=== PATIENT | female | born 1995 | race Caucasian/White ===

== ENCOUNTER 2023-04-03 10:01 | Emergency (ER) | payer OTHER, MEDICAID, SELFPAY ==
[2023-04-03 10:06] VITALS: BP 116/73; PULSE 78; RESP 15; TEMP 36.6; O2SAT 100; BMI 35.2
--- NOTE | 2023-04-03 10:31 | PC.NURSE ---
labs being drawn
[2023-04-03 10:49] LABS: Add Manual Diff / Slide Review NO; Basophils Absolute Auto 0 /uL (0-100); Basophils Percent Auto 0.4 % (0-2); Eosinophils Absolute Auto 0 /uL (0-450); Eosinophils Percent Auto 0.5 % (2-4); Hematocrit 37.4 % (36-46); Hemoglobin 12.7 g/dL (12.0-16.0); Lymphocytes Absolute Auto 1700 /uL (1100-4500); Lymphocytes Percent Auto 23.4 % (25-40); Mean Corpuscular HGB Conc 33.9 % (30-36); Mean Corpuscular Hemoglobin 30.1 PG (26-34); Mean Corpuscular Volume 88.8 fL (80-100); Monocytes Absolute Auto 400 /uL (0-900); Monocytes Percent Auto 5.3 % (3-14); Neutrophils Absolute Auto 5000 /uL (1500-7000); Neutrophils Percent Auto 70.4 % (50-75); Platelet Count 192 X10^3/uL (150-400); Red Blood Cell Count 4.21 X10^6/uL (4.0-5.2); Red Cell Distribution Width 12.7 % (11.6-14.8); White Blood Cell Count 7.1 X10^3/uL (4.5-11.0)
--- NOTE | 2023-04-03 10:49 | ED_ITS ---
HPI - Psych General Chief Complaint: Psychiatric Symptoms Stated Complaint: psychiatric symptoms Time Seen by Provider: 04/03/23 10:38 Source: patient Mode of arrival: Ambulatory History of Present Illness HPI Narrative: 27-year-old female. History of bipolar disorder. Is on multiple medications for this. Has recently moved to the local area. She has seen a mental health provider in the past but that was at her prior place of living in [place]. Her medications are still prescribed by her provider in [place]. She is taking all of her medications as directed. She states she does vape and use marijuana. She only occasionally drinks. Has not used any alcohol in the past 24 hours. Denies any other illicit drugs. She states that for the past several weeks she is had progressively worsening issues with depression and suicidal ideation. States that yesterday she did cut her left wrist. She was unsure as to what she was trying to accomplish with this although she stated that she did hope that she would because of the cut. She states she does not actually want to . She is . She has a 5-year-old nonverbal son at home but she states that she can not live the way that she is currently feeling in his asking for help. She has been admitted to the hospital in the past. Most recently in 2017. He has tried to commit suicide in the past. She states she does not feel safe at home. She denies any other medical problems. She thinks that she potentially was manic prior to her episode of depression this started several weeks ago. Related Data Home Medications Medication Instructions Recorded Confirmed atomoxetine 10 mg capsule mg PO DAILY 04/03/23 (Strattera) buspirone 5 mg tablet mg PO BID 04/03/23 cariprazine 4.5 mg capsule 4.5 mg PO DAILY 04/03/23 04/03/23 (Vraylar) prazosin 1 mg capsule mg PO BEDTIME 04/03/23 trihexyphenidyl 2 mg tablet mg PO BID 04/03/23 Allergies Allergy/AdvReac Type Severity Reaction Status Date / Time No Known Drug Allergies Allergy Verified 04/03/23 10:05 Review of Systems Review of Systems ROS Unobtainable: All systems reviewed & are unremarkable except as noted in HPI and below Patient History Medical History Bipolar disorder Social History Smoking Status: Current every day smoker Smoking Status: Current every day smoker tobacco type: vaping alcohol intake frequency: holidays/special occasions only Substance Use Type: marijuana Exam Initial Vital Signs Initial Vital Signs: Vital Signs Temperature 97.8 F 04/03/23 10:06 Pulse Rate 78 04/03/23 10:06 Respiratory Rate 15 04/03/23 10:06 Blood Pressure 116/73 04/03/23 10:06 Pulse Oximetry 100 04/03/23 10:06 Oxygen Delivery Method Room Air 04/03/23 10:06 HENMT Head: normal to inspection Resp Effort & Inspection: normal respiratory effort Cardio Rate: regular rate Skin Other: Superficial laceration to left wrist Neuro General: patient alert, patient awake, patient oriented x3 and moves all extremities Extrem Other: She is tearful in the room however is calm and cooperative. Denies suicidal ideation but states she ?does not want to live? Course Orders Ordered: ED Orders 04/03/23 10:12 Consult to HEALTH SERVICE WORKER - Log Chain Worker Stat 04/03/23 10:18 Urine Culture Stat Urine Drug Screen, Rapid Stat Urine Microscopic Stat 04/03/23 10:38 Acetaminophen Stat Complete Blood Count AUTO DIFF Stat Comprehensive Metabolic Panel Stat Ethanol (ETOH) Stat Free T4, Direct Thyroxine Stat Salicylate Stat Thyroid Stimulating Hormone Stat 04/03/23 12:07 COVID19 -Nasal RAPID Stat Vital Signs Vital signs: Vital Signs - 8 hr 04/03/23 10:06 04/03/23 13:54 Temperature 97.8 F Pulse Rate 78 68 Respiratory Rate 15 14 Blood Pressure 116/73 112/63 Pulse Oximetry 100 99 Oxygen Delivery Method Room Air Room Air MDM - Psych Lab Data 04/03/23 10:38 04/03/23 10:38 Labs: Lab Results 04/03/23 04/03/23 04/03/23 Range/Units 10:18 10:18 10:38 WBC 7.1 (4.5-11.0) X10^3/uL RBC 4.21 (4.0-5.2) X10^6/uL Hgb 12.7 (12.0-16.0) g/dL Hct 37.4 (36-46) % MCV 88.8 (80-100) fL MCH 30.1 (26-34) PG MCHC 33.9 (30-36) % RDW 12.7 (11.6-14.8) % Plt Count 192 (150-400) X10^3/uL Neut % (Auto) 70.4 (50-75) % Lymph % (Auto) 23.4 L (25-40) % Mobile % (Auto) 5.3 (3-14) % Eos % (Auto) 0.5 L (2-4) % Baso % (Auto) 0.4 (0-2) % Neut # (Auto) 5000 (4694-1601) /uL Lymph # (Auto) 1700 (7264-6165) /uL Mobile # (Auto) 400 (0-900) /uL Eos # (Auto) 0 (0-450) /uL Baso # (Auto) 0 (0-100) /uL Sodium (137-145) mmol/L Potassium (3.4-5.1) mmol/L Chloride (98-107) mmol/L Carbon Dioxide (22-32) mmol/L BUN (7-17) mg/dL Creatinine (0.52-1.04) mg/dL Estimated GFR (>60) mL/min BUN/Creatinine Ratio (6-22) Glucose (70-100) mg/dL Calcium (8.4-10.2) mg/dL Total Bilirubin (0.2-1.3) mg/dL AST (14-36) IU/L ALT (<35) IU/L Alkaline Phosphatase (38-126) U/L Total Protein (6.3-8.2) g/dL Albumin (3.5-5.0) g/dL Globulin (1.7-4.1) g/dL Albumin/Globulin Ratio (1.0-2.8) TSH (0.47-4.68) uIU/mL Free T4 (0.78-2.19) ng/dL Urine RBC None seen (0-5/HPF) Urine WBC 1-5/hpf (0-5/HPF) Ur Squamous Epith Cells 5-10 /hpf H (0-5/HPF) Urine Bacteria Many (>30) H (None) Ur Culture Indicated? Specimen cultured Salicylates (<20) mg/dL U Opiates 300ng/mL cut Negative (Negative) Ur Oxycodone Screen Negative (Negative) Urine Methadone Screen Negative (Negative) Acetaminophen (10-30) ug/mL Ur Barbiturates Screen Negative (Negative) U Tricyclic Antidepress Negative (Negative) Ur Phencyclidine Scrn Negative (Negative) Ur Amphetamines Screen Negative (Negative) U Methamphetamines Scrn Negative (Negative) Ur MDMA Scrn (Ecstasy) Negative (Negative) U Benzodiazepines Scrn Negative (Negative) Urine Cocaine Screen Negative (Negative) U Marijuana (THC) Screen Positive H (Negative) Ethyl Alcohol ( - 10) mg/dL SARS-CoV-2 (PCR) (Negative) 04/03/23 04/03/23 04/03/23 Range/Units 10:38 10:38 12:07 WBC (4.5-11.0) X10^3/uL RBC (4.0-5.2) X10^6/uL Hgb (12.0-16.0) g/dL Hct (36-46) % MCV (80-100) fL MCH (26-34) PG MCHC (30-36) % RDW (11.6-14.8) % Plt Count (150-400) X10^3/uL Neut % (Auto) (50-75) % Lymph % (Auto) (25-40) % Mobile % (Auto) (3-14) % Eos % (Auto) (2-4) % Baso % (Auto) (0-2) % Neut # (Auto) (7931-0735) /uL Lymph # (Auto) (5297-8541) /uL Mobile # (Auto) (0-900) /uL Eos # (Auto) (0-450) /uL Baso # (Auto) (0-100) /uL Sodium 139 (137-145) mmol/L Potassium 4.7 (3.4-5.1) mmol/L Chloride 106 (98-107) mmol/L Carbon Dioxide 22 (22-32) mmol/L BUN 18 H (7-17) mg/dL Creatinine 0.89 (0.52-1.04) mg/dL Estimated GFR > 60 (>60) mL/min BUN/Creatinine Ratio 20.2 (6-22) Glucose 109 H (70-100) mg/dL Calcium 8.9 (8.4-10.2) mg/dL Total Bilirubin 0.3 (0.2-1.3) mg/dL AST 19 (14-36) IU/L ALT 20 (<35) IU/L Alkaline Phosphatase 49 (38-126) U/L Total Protein 7.2 (6.3-8.2) g/dL Albumin 4.0 (3.5-5.0) g/dL Globulin 3.2 (1.7-4.1) g/dL Albumin/Globulin Ratio 1.3 (1.0-2.8) TSH 0.424 L (0.47-4.68) uIU/mL Free T4 1.09 (0.78-2.19) ng/dL Urine RBC (0-5/HPF) Urine WBC (0-5/HPF) Ur Squamous Epith Cells (0-5/HPF) Urine Bacteria (None) Ur Culture Indicated? Salicylates < 1.0 (<20) mg/dL U Opiates 300ng/mL cut (Negative) Ur Oxycodone Screen (Negative) Urine Methadone Screen (Negative) Acetaminophen < 10 (10-30) ug/mL Ur Barbiturates Screen (Negative) U Tricyclic Antidepress (Negative) Ur Phencyclidine Scrn (Negative) Ur Amphetamines Screen (Negative) U Methamphetamines Scrn (Negative) Ur MDMA Scrn (Ecstasy) (Negative) U Benzodiazepines Scrn (Negative) Urine Cocaine Screen (Negative) U Marijuana (THC) Screen (Negative) Ethyl Alcohol < 10 ( - 10) mg/dL SARS-CoV-2 (PCR) Negative (Negative) Point of Care Testing Test Results Negative Urine Dip Bedside Urine Glucose Negative Bedside Urine Bilirubin - Negative Bedside Urine Ketone - Negative Urine Specific [place] 1.015 Bedside Urine Occult Blood - Negative Bedside Urine pH 6.0 Bedside Urine Protein - Negative Bedside Urine Urobilinogen - Negative Bedside Urine Nitrite - Negative Bedside Urine Leukocytes ++ 125 Esterase MDM Narrative Medical decision making narrative: Patient is here voluntarily. Does have a history of bipolar. Potentially was manic and then has been depressed for the past couple days. Has a superficial laceration to her left wrist that needs no specific intervention here in the ER. Patient has been seen by social work. She is medically cleared. Patient has been accepted at [facility]. She is stable for transport. Discharge Plan Departure Patient Disposition: Xfer Psychiatric Hosp Clinical Impression: Depression, Suicidal thoughts, Bipolar disorder, Abrasion of skin Prescriptions: No Action buspirone 5 mg Tablet PO BID Rx Instructions: doesn't know her dose trihexyphenidyl 2 mg Tablet PO BID Patient Comments: doesn't know her dose Vraylar 4.5 mg Capsule 4.5 mg PO DAILY prazosin 1 mg Capsule PO BEDTIME Rx Instructions: doesn't know her dose atomoxetine [Strattera] 10 mg Capsule PO DAILY Rx Instructions: doesn't know her dose
[2023-04-03 10:52] LABS: UR Morphine/Opiate cutoff 300 Negative (Negative); Ur Creatinine Normal (Normal); Ur Specific Gravity Normal (Normal); Urine Amphetamines Negative (Negative); Urine Barbiturates Negative (Negative); Urine Benzodiazepines Negative (Negative); Urine Cocaine Negative (Negative); Urine MDMA Negative (Negative); Urine Methadone Negative (Negative); Urine Methamphetamines Negative (Negative); Urine Oxycodone Negative (Negative); Urine Phencyclidine Negative (Negative); Urine Tetrahydrocannabinol Positive (Negative); Urine Tricyclic Antidepressant Negative (Negative); Urine pH Normal (Normal)
[2023-04-03 10:56] LABS: Bacteria Urine Many (>30); Culture Indicated Urine Specimen Cultured; RBC Urine None Seen (0-5/HPF); Squamous Epithelial Cell Urine 5-10 /HPF (0-5/HPF); WBC Urine 1-5/HPF (0-5/HPF)
[2023-04-03 10:58] LABS: Acetaminophen < 10 ug/mL (10-30); Alanine Aminotransferase 20 IU/L (<35); Albumin Globulin Ratio 1.3 (1.0-2.8); Alkaline Phosphatase 49 U/L (38-126); Aspartate Aminotransferase 19 IU/L (14-36); BUN Creatinine Ratio 20.2 (6-22); Bilirubin Total 0.3 mg/dL (0.2-1.3); Blood Urea Nitrogen 18 mg/dL (7-17); Calcium 8.9 mg/dL (8.4-10.2); Carbon Dioxide 22 mmol/L (22-32); Chloride 106 mmol/L (98-107); Estimated Glomerular Filt Rate > 60 mL/min (>60); Globulin 3.2 g/dL (1.7-4.1); Glucose 109 mg/dL (70-100); HEMOLYSIS < 15 (0-50); Potassium 4.7 mmol/L (3.4-5.1); Sodium 139 mmol/L (137-145); Total Protein 7.2 g/dL (6.3-8.2)
[2023-04-03 11:08] LABS: Ethanol (ETOH) < 10 mg/dL; Salicylate < 1.0 mg/dL (<20)
[2023-04-03 11:22] LABS: Free T4, Direct Thyroxine 1.09 ng/dL (0.78-2.19)
[2023-04-03 11:36] LABS: Thyroid Stimulating Hormone 0.424 uIU/mL (0.47-4.68)
--- NOTE | 2023-04-03 11:37 | CM.DANOTE ---
ED Psychiatric Symptoms Assessment ED Psychiatric Symptoms Assessment Start: 04/03/23 10:12 Freq: Status: Active Protocol: Document 04/03/23 10:15 KB (Rec: 04/03/23 10:30 KB [id number]) Psychiatric Symptoms Assessment Symptoms/Complaint Suicidal Ideation Duration Intermittent History Of Same Yes Associated Psychiatric Symptoms Suicidal Ideation Details of Plan Pt here because she states I want to Pt has cycles of this with her bipolar disorder,she is concerned that her meds aren't working right . Pt states I don't know why because everything is fine.Pt denies specific plan states I guess I would kind of just take all my medicine,I don't want it to hurt,I want it to be over. Pt attempted to cut her wrists in 2019 which is the last time that she felt like this. Pt recently moved here 3 months ago,doesn't have a doctor at this time. Pt states I'm afraid if I'm left like this any longer I will follow papa. Pt is willing and voluntary to go to inpatient treatment. P states I'm willing to do whatever will help at this point. Pts brought her here today. [ End ] Level of Observation Intermittent Precautions Safety precautions initiated Room placement ligature mitigated room Safety Interventions Patient belongings removed from room,Explanation of process given to patient,Pt placed in hospital safety attire Level of Consciousness Alert,Appropriate,Awake Ability to Follow Directions Excellent Patient Cognition Impaired No Affect Description Calm,Tearful Patient Appearance Well Groomed Hallucination Type None Depressive Symptoms Crying Spells Suicidal Ideation Frequent Suicide Plan Vague Note written by CHRISTI ADAMS, submitted by JUANITA Rangel
--- NOTE | 2023-04-03 12:19 | PC.NURSE ---
The pt and I attempted to set up [facility] health care insurance. The [place] [employer] finder karen and website are down for maintance.
--- NOTE | 2023-04-03 12:26 | PC.NURSE ---
attempting to get insurance for the patient online.
[2023-04-03 12:28] LABS: COVID19 -Nasal RAPID Negative (Negative)
[2023-04-03 13:54] VITALS: BP 112/63; PULSE 68; RESP 14; O2SAT 99
--- NOTE | 2023-04-03 14:11 | CM.SWNOTE ---
DISTRICT SUPERINTENDENT Note This DISTRICT SUPERINTENDENT requested to assist in dispo coordination for this 27 yo F requesting voluntary psychiatric placement Dr Juarez and RN team agree patient is appropriate for inpatient stabilization, patient arrives with active SI, cutting and hx of SI with attempt Placed calls to [facility], [facility] and [facility] inpatient psych and faxed clinical packet; all had beds however [facility] and [facility] would not accept patient without RANDAL pending. Patient recently moved to the area with spouse and neither have insurance Admission counselors are not available over the weekend and RN and patient could not go onto the [employer] finder as the system was down today Thankfully, [facility] came back with an acceptance knowing that patient had no insurance but could be signed up once admitted to their psychiatric unit Voluntary consent form was faxed from [facility], reviewed with patient by this DISTRICT SUPERINTENDENT, signed by patient and faxed back. Patient was aware and agreeable to plan and asked to update her spouse by phone of the plan- relayed this to RN Manuela BLS was arranged by ER team for 1400 p/u with the following information: Accepting provider Dr Choco So. Nurse 2 Nurse P [phone]. Contact today was Yulisa Fitzpatrick [phone] plan: Discharge from the ER via secured BLS to [facility] inpatient psychiatric unit, 3-5 day stay for stabilization JUANITA Rangel
== END 2023-04-03 14:12 ==
PROVIDERS: Emergency Provider Emergency Medicine
DX: F32.A Depression, unspecified (principal); R45.851 Suicidal ideations; F31.9 Bipolar disorder, unspecified; S60.812A Abrasion of left wrist, initial encounter; Z20.822 Contact with and (suspected) exposure to COVID-19
CPT/HCPCS: 36415; 80053; 80305; 80320; 80329; 81003; 81015; 81025; 84439; 84443; 85025; 87086; 87635; 99284; C9803; G0480

== ENCOUNTER 2023-04-17 10:37 | Emergency (ER) | payer OTHER, MEDICAID, SELFPAY ==
[2023-04-17 10:45] VITALS: BP 121/55; PULSE 80; RESP 18; TEMP 36.6; O2SAT 100; BMI 32.5
--- NOTE | 2023-04-17 10:58 | ED.RECABL ---
HPI - Recheck/Abnormal Lab/Rx General Chief Complaint: Recheck/Abnormal Lab/Rx Stated Complaint: almost out of meds Time Seen by Provider: 04/17/23 10:54 Source: patient Mode of arrival: Ambulatory History of Present Illness HPI narrative: 27-year-old female presents for medication refill. Patient was recently discharged after psychiatric stay, she was discharged on ziprasidone and lithium. She states that her mood is well controlled, but her next doctor's appointment is not for another 20 days and she only has a few days left of her medication. She already has an appointment set up with her doctor's office for a lithium check. She states her lithium was checked just prior to discharge from the psychiatric hospital and it was reported to be normal. Related Data Home Medications Medication Instructions Recorded Confirmed atomoxetine 10 mg capsule mg PO DAILY 04/03/23 (Strattera) buspirone 5 mg tablet mg PO BID 04/03/23 cariprazine 4.5 mg capsule 4.5 mg PO DAILY 04/03/23 04/03/23 (Vraylar) prazosin 1 mg capsule mg PO BEDTIME 04/03/23 trihexyphenidyl 2 mg tablet mg PO BID 04/03/23 Previous Rx's Medication Instructions Recorded lithium carbonate 450 mg 450 mg PO BID #60 tabs 04/17/23 tablet,extended release ziprasidone HCl 40 mg capsule 40 mg PO BID #60 caps 04/17/23 Allergies Allergy/AdvReac Type Severity Reaction Status Date / Time No Known Drug Allergies Allergy Verified 04/03/23 10:05 Review of Systems Review of Systems Narrative: CONSTITUTIONAL- Denies: fever, chills, fatigue HEENT- Denies: sore throat, nosebleed, vision changes RESPIRATORY- Denies: shortness of breath, cough, wheezing CARDIAC- Denies: chest pain, edema, orthopnea GI- Denies: abdominal pain, nausea, vomiting, constipation, diarrhea - Denies: frequency, dysuria, hematuria, flank pain MSK- Denies: extremity pain, extremity swelling, joint pain, joint swelling SKIN- Denies: rash, itching, burn, swelling NEUROLOGICAL- Denies: headache, numbness, weakness, dizziness PSYCHIATRIC- Denies: anxiety, depression, suicidal ideation, homicidal ideation Patient History Medical History Bipolar disorder Social History Smoking Status: Current every day smoker Smoking Status: Current every day smoker tobacco type: vaping alcohol intake frequency: holidays/special occasions only Substance Use Type: marijuana Exam Initial Vital Signs Initial Vital Signs: Vital Signs Temperature 97.9 F 04/17/23 10:45 Pulse Rate 80 04/17/23 10:45 Respiratory Rate 18 04/17/23 10:45 Blood Pressure 121/55 L 04/17/23 10:45 Pulse Oximetry 100 04/17/23 10:45 Oxygen Delivery Method Room Air 04/17/23 10:45 Const: Awake, alert, no acute distress, nontoxic appearing Eyes: PERRL, EOMI, conjunctiva normal ENT: Atraumatic, dentition normal, mucous membranes moist Cardiac: regular rate, regular rhythm RESP: unlabored, clear bilaterally, no wheezing GI: Atraumatic, soft, nontender, nondistended, no rebound, no guarding MSK: Atraumatic, full range of motion, pulses equal Skin: Warm, Dry, intact, no rashes Neuro: AO x3, CN II-XII grossly intact, moves all extremities Psych: affect normal, mood normal, not suicidal, not homicidal Course Course Course Narrative: Well-appearing patient presenting for medication refill. Her mood is well controlled on her current regimen and she denies complaints. She already has appropriately scheduled follow up to check her lithium levels. Thirty day refills sent to pharmacy. Vital Signs Vital signs: Vital Signs - 8 hr 04/17/23 10:45 Temperature 97.9 F Pulse Rate 80 Respiratory Rate 18 Blood Pressure 121/55 L Pulse Oximetry 100 Oxygen Delivery Method Room Air Discharge Plan Departure Patient Disposition: Home Clinical Impression: Encounter for medication refill Instructions: Psychotherapy Prescriptions: New ziprasidone HCl 40 mg capsule 40 mg PO BID Qty: 60 0RF Rx Instructions: give with food (meal/snack) lithium carbonate 450 mg tablet extended release 450 mg PO BID Qty: 60 0RF No Action buspirone 5 mg Tablet PO BID Rx Instructions: doesn't know her dose trihexyphenidyl 2 mg Tablet PO BID Patient Comments: doesn't know her dose Vraylar 4.5 mg Capsule 4.5 mg PO DAILY prazosin 1 mg Capsule PO BEDTIME Rx Instructions: doesn't know her dose atomoxetine [Strattera] 10 mg Capsule PO DAILY Rx Instructions: doesn't know her dose Referrals: Miscellaneous,Doctor, MD [Primary Care Provider] - Stand Alone Forms: Patient Portal/API
== END 2023-04-17 11:04 | disposition home or self-care (01) ==
PROVIDERS: Emergency Provider Emergency Medicine
DX: Z76.0 Encounter for issue of repeat prescription (principal)
CPT/HCPCS: 99281; 99282

== ENCOUNTER 2023-07-17 13:17 | Emergency (ER) | payer OTHER, MEDICAID, SELFPAY ==
[2023-07-17 13:20] VITALS: BP 141/71; PULSE 78; RESP 18; TEMP 36.9; O2SAT 100; BMI 35.2
--- NOTE | 2023-07-17 13:26 | ED_ITS ---
HPI - Headache General Chief Complaint: Headache Stated Complaint: per pt chronic sinusitis Time Seen by Provider: 07/17/23 13:26 Mode of arrival: Ambulatory History of Present Illness HPI Narrative: This is a 28-year-old female presents emergency department due to acute on chronic sinusitis. States she has had sinusitis chronically for the last 10 years where she had reported sinus surgery in [place] but states that she has been told that she needs mastoid surgery as well by her previous ENT. She was moved to the area and is working to establish with an ENT that will work with her insurance. Reports he is acute symptoms happening over the last 10 days with sinus pain and pressure, cough, intermittent fevers. Related Data Home Medications Medication Instructions Recorded Confirmed atomoxetine 10 mg capsule mg PO DAILY 04/03/23 (Strattera) buspirone 5 mg tablet mg PO BID 04/03/23 cariprazine 4.5 mg capsule 4.5 mg PO DAILY 04/03/23 04/03/23 (Vraylar) prazosin 1 mg capsule mg PO BEDTIME 04/03/23 trihexyphenidyl 2 mg tablet mg PO BID 04/03/23 Previous Rx's Medication Instructions Recorded lithium carbonate 450 mg 450 mg PO BID #60 tabs 04/17/23 tablet,extended release ziprasidone HCl 40 mg capsule 40 mg PO BID #60 caps 04/17/23 amoxicillin 875 mg-potassium 1 tab PO BID #14 tabs 07/17/23 clavulanate 125 mg tablet fluticasone propionate 50 1 spray intranasal Q12H #16 grams 07/17/23 mcg/actuation nasal spray,suspension (Flonase Allergy Relief) metoclopramide HCl 5 mg tablet 5 mg PO QAC #20 tabs 07/17/23 (Reglan) Allergies Allergy/AdvReac Type Severity Reaction Status Date / Time No Known Drug Allergies Allergy Verified 07/17/23 13:20 Review of Systems Review of Systems Narrative: GENERAL: Reports fevers Denies chills, fatigue, malaise, , sweats. HEENT: Reports sinus pain and pressure, denies ear pain, sore throat, difficulty swallowing, dizziness. RESPIRATORY: Reports cough Denies dyspnea, , wheezing, hemoptysis, sputum. CARDIOVASCULAR: Denies chest pain, palpitations, orthopnea, edema, GASTROINTESTINAL: Denies nausea, vomiting, abdominal pain, diarrhea, constipation, melena. : Denies dysuria, frequency, incontinence, hematuria, urinary retention. MUSCULOSKELETAL: denies weakness, joint pain, or bony pain SKIN: Denies rash, skin lesions, or other NEUROLOGIC: Denies weakness, headache, numbness, change in speech, confusion, seizures, incoordination. PSYCHIATRIC: No concerning psychosocial issues. 12 point review of systems is negative except for those stated above Patient History Medical History Bipolar disorder Social History Smoking Status: Current every day smoker Smoking Status: Current every day smoker tobacco type: vaping alcohol intake frequency: holidays/special occasions only Substance Use Type: marijuana Exam Narrative Exam Narrative: GENERAL: Well-developed patient, in mild distress. HEAD: Atraumatic. Normocephalic. Maxillary sinus tenderness to palpation EYES: Pupils equal round and reactive. Extraocular motions intact. No scleral icterus. No injection or drainage. ENT: Nose without bleeding, purulent drainage. Throat without erythema, tonsillar hypertrophy or exudate. Airway patent. NECK: Trachea midline. Non tender EXTREMITIES: No edema or joint tenderness. BACK: Nontender without deformity or crepitance. No flank tenderness. NEURO: AOx3. SKIN: No rash or erythema of visible areas Initial Vital Signs Initial Vital Signs: Vital Signs Temperature 98.4 F 07/17/23 13:20 Pulse Rate 78 07/17/23 13:20 Respiratory Rate 18 07/17/23 13:20 Blood Pressure 141/71 H 07/17/23 13:20 Pulse Oximetry 100 07/17/23 13:20 Oxygen Delivery Method Room Air 07/17/23 13:20 Course Vital Signs Vital signs: Vital Signs - 8 hr 07/17/23 13:20 Temperature 98.4 F Pulse Rate 78 Respiratory Rate 18 Blood Pressure 141/71 H Pulse Oximetry 100 Oxygen Delivery Method Room Air MDM - Headache MDM Narrative Medical decision making narrative: MDM * differential diagnosis includes but not limited to bacterial sinusitis, viral sinusitis, headache * Prior records reviewed: Patient was seen here 3 months ago due to a medication refill. Need a refill for her ziprasidone and lithium. History of bipolar disorder. * My lab interpretation: None obtained * My imgaing interpretation: None obtained * Clinical Decision Rules/Scores evaluated: None * Independent discussions with: None ED Course: This is a 28-year-old female presenting to the emergency department due to acute on chronic sinusitis. Possibly bacterial in nature based on symptoms and we will treat with oral antibiotics. Patient is working to establish with the ENT to help with the chronic sinusitis. Shared Decision Making: Discussed plan with the patient who is comfortable with the plan Social Considerations: None Disposition: Discharged to home Discharge Plan Departure Patient Disposition: Home Clinical Impression: Sinusitis Instructions: DI for Sinusitis Activity Restrictions/Additional Instructions: Thank you for coming to the [facility] Emergency Department today. Please take the oral antibiotics as prescribed as well as use the Flonase. I do recommend he follow up with an ENT that you are working do with your insurance as they had best people to manage his chronic symptoms. I hope you feel better soon. Please follow up with your primary care provider within a week if your symptoms continue. If you do not have a primary care provider please contact the [facility] Resource line at [phone]. They will ask some questions about your medical history and help you get set up with a provider in the community. Prescriptions: New amoxicillin-pot clavulanate 875-125 mg tablet 1 tab PO BID Qty: 14 0RF fluticasone propionate [Flonase Allergy Relief] 50 mcg/actuation spray,suspension 1 spray intranasal Q12H Qty: 16 0RF Rx Instructions: administer into each nostril metoclopramide HCl [Reglan] 5 mg tablet 5 mg PO QAC Qty: 20 0RF Rx Instructions: administer 30 minutes before meals No Action buspirone 5 mg Tablet PO BID Rx Instructions: doesn't know her dose trihexyphenidyl 2 mg Tablet PO BID Patient Comments: doesn't know her dose Vraylar 4.5 mg Capsule 4.5 mg PO DAILY prazosin 1 mg Capsule PO BEDTIME Rx Instructions: doesn't know her dose atomoxetine [Strattera] 10 mg Capsule PO DAILY Rx Instructions: doesn't know her dose ziprasidone HCl 40 mg capsule 40 mg PO BID Qty: 60 0RF Rx Instructions: give with food (meal/snack) lithium carbonate 450 mg tablet extended release 450 mg PO BID Qty: 60 0RF Referrals: Miscellaneous,Doctor, [Primary Care Provider] - Stand Alone Forms: Patient Portal/API
[2023-07-17 13:42] VITALS: BP 120/68; PULSE 88; RESP 12; O2SAT 99
== END 2023-07-17 13:44 | disposition home or self-care (01) ==
PROVIDERS: Emergency Provider Physician Assistant Medical
DX: J32.9 Chronic sinusitis, unspecified (principal)
CPT/HCPCS: 99281

== ENCOUNTER 2023-07-28 14:47 | Emergency (ER) | payer OTHER, MEDICAID, SELFPAY ==
[2023-07-28 14:57] VITALS: BP 130/76; PULSE 95; RESP 18; TEMP 36.7; O2SAT 100; BMI 35.2
--- NOTE | 2023-07-28 15:13 | DI.US.S_ITS ---
PROCEDURE: US ABDOMEN LIMITED INDICATIONS: ABDOMINAL PAIN; HISTORY OF GALLSTONES TECHNIQUE: Real-time scanning was performed of the abdominal and retroperitoneal organs, with image documentation. COMPARISON: None. FINDINGS: Liver: Liver is normal in size and homogeneous in echotexture. Gallbladder: Multiple mobile stones are present within the gallbladder fundus. The gallbladder wall measures 1.5 mm in diameter. No pericholecystic fluid or sonographic Ordonez sign. Biliary ducts: Intrahepatic bile ducts are non-dilated. Extrahepatic bile duct caliber measures 5.9 mm. Normal is 6-7 mm or less in diameter, or 10 mm or less post-cholecystectomy. Pancreas: Visualized portions of the pancreas are sonographically normal. The tail is not visualized. IMPRESSION: Cholelithiasis. No findings to suggest choledocholithiasis or acute cholecystitis. Dictated by: Mirna Lay M.D. on 07/28/2023 at 16:07 Approved by: Mirna Lay M.D. on 07/28/2023 at 16:08
[2023-07-28 15:31] LABS: Add Manual Diff / Slide Review NO; Basophils Absolute Auto 100 /uL (0-100); Basophils Percent Auto 0.6 % (0-2); Eosinophils Absolute Auto 0 /uL (0-450); Eosinophils Percent Auto 0.4 % (2-4); Hematocrit 40.2 % (36-46); Hemoglobin 13.7 g/dL (12.0-16.0); Lymphocytes Absolute Auto 2200 /uL (1100-4500); Lymphocytes Percent Auto 20.8 % (25-40); Mean Corpuscular HGB Conc 34.2 % (30-36); Mean Corpuscular Hemoglobin 30.4 PG (26-34); Mean Corpuscular Volume 88.9 fL (80-100); Monocytes Absolute Auto 500 /uL (0-900); Monocytes Percent Auto 4.4 % (3-14); Neutrophils Absolute Auto 7800 /uL (1500-7000); Neutrophils Percent Auto 73.8 % (50-75); Platelet Count 222 X10^3/uL (150-400); Red Blood Cell Count 4.52 X10^6/uL (4.0-5.2); Red Cell Distribution Width 12.3 % (11.6-14.8); White Blood Cell Count 10.6 X10^3/uL (4.5-11.0)
[2023-07-28 15:41] LABS: Appearance Urine UA CLEAR; Bilirubin Urine UA NEGATIVE (NEGATIVE); Color Urine UA YELLOW; Glucose Urine UA NEGATIVE (Negative); Ketones Urine UA NEGATIVE (NEGATIVE); Leukocyte Esterase Urine UA NEGATIVE (NEGATIVE); Nitrite Urine UA NEGATIVE (Negative); Occult Blood Urine UA NEGATIVE (Negative); Protein Urine UA NEGATIVE (Negative); Specific Gravity Urine UA 1.015 (1.000-1.035)
[2023-07-28 15:50] LABS: pH Urine UA 7.5 (4.5-8.0)
--- NOTE | 2023-07-28 16:01 | ED_ITS ---
HPI - Abdominal Pain <Eugenie Wright PA-C - Last Filed: 07/28/23 20:06> General Chief Complaint: Abdominal Pain Stated Complaint: gallbladder pain, nausea, vomiting, chills Time Seen by Provider: 07/28/23 15:46 Source: patient Mode of arrival: Ambulatory History of Present Illness HPI narrative: 28-year-old woman with a history of previous ?gallbladder attacks? presents with concern for right upper quadrant abdominal pain since 3:00 a.m. this morning that woke her from sleep with nausea and vomiting. Patient has had 4 episodes of vomiting states the pain is persistent is coming and going somewhat when it is at its worse it has about a 9/10. She describes it as a sharp pain that is in her right upper abdomen and she sometimes feels the pain radiating to her right back and right shoulder. She states she has had some diarrhea this morning and also has had some chills. She endorses frequent urination but states this is normal for her she does feel she has been peeing a bit more often than usual the last few nights though. She tried to eat breakfast this morning and states it made the pain a lot worse. It does hurt more when she takes a deep breath or when she moves. She denies shortness of breath, fevers, chest pain, dysuria, or other symptoms. Related Data Home Medications Medication Instructions Recorded Confirmed atomoxetine 10 mg capsule mg PO DAILY 04/03/23 (Strattera) buspirone 5 mg tablet mg PO BID 04/03/23 cariprazine 4.5 mg capsule 4.5 mg PO DAILY 04/03/23 04/03/23 (Vraylar) prazosin 1 mg capsule mg PO BEDTIME 04/03/23 trihexyphenidyl 2 mg tablet mg PO BID 04/03/23 Previous Rx's Medication Instructions Recorded lithium carbonate 450 mg 450 mg PO BID #60 tabs 04/17/23 tablet,extended release ziprasidone HCl 40 mg capsule 40 mg PO BID #60 caps 04/17/23 amoxicillin 875 mg-potassium 1 tab PO BID #14 tabs 07/17/23 clavulanate 125 mg tablet fluticasone propionate 50 1 spray intranasal Q12H #16 grams 07/17/23 mcg/actuation nasal spray,suspension (Flonase Allergy Relief) metoclopramide HCl 5 mg tablet 5 mg PO QAC #20 tabs 07/17/23 (Reglan) ondansetron 4 mg disintegrating 4 mg PO Q8H 4 days #12 tabs 07/28/23 tablet Allergies Allergy/AdvReac Type Severity Reaction Status Date / Time ibuprofen AdvReac Verified 07/28/23 15:01 Review of Systems <Eugenie Wright PA-C - Last Filed: 07/28/23 20:06> Review of Systems Narrative: See HPI Patient History <Eugenie Wright PA-C - Last Filed: 07/28/23 20:06> Medical History Bipolar disorder Social History Smoking Status: Current every day smoker Smoking Status: Current every day smoker tobacco type: vaping alcohol intake frequency: holidays/special occasions only Substance Use Type: marijuana Exam <Eugenie Wright PA-C - Last Filed: 07/28/23 20:06> Narrative Exam Narrative: GENERAL: [28] year old patient appears stated age. Well-developed patient, in mild distress, uncomfortable appearing. HEAD: Atraumatic. Normocephalic. EYES: Pupils equal round and reactive. Extraocular motions intact. No scleral icterus. No injection or drainage. ENT: Nose without bleeding, purulent drainage. Airway patent. NECK: Trachea midline. Non tender CARDIOVASCULAR: Regular rate and rhythm without murmurs, gallops, or rubs. RESPIRATORY: Clear to auscultation. Breath sounds equal bilaterally. No wheezes, rales, or rhonchi. GASTROINTESTINAL: Abdomen soft, generalized tenderness of the epigastric and right upper quadrant, otherwise non-tender, nondistended, no Rovsing or McBurney's point tenderness. EXTREMITIES: No edema or joint tenderness. BACK: Nontender without deformity or crepitance. No flank tenderness, no CVA tenderness. NEURO: AOx3. SKIN: No rash or erythema of visible areas Initial Vital Signs Initial Vital Signs: Vital Signs Temperature 98.1 F 07/28/23 14:57 Pulse Rate 95 H 07/28/23 14:57 Respiratory Rate 18 07/28/23 14:57 Blood Pressure 130/76 07/28/23 14:57 Pulse Oximetry 100 07/28/23 14:57 Oxygen Delivery Method Room Air 07/28/23 14:57 <Susi Edmond DO - Last Filed: 07/29/23 07:22> Initial Vital Signs Initial Vital Signs: Vital Signs Temperature 98.1 F 07/28/23 14:57 Pulse Rate 95 H 07/28/23 14:57 Respiratory Rate 18 07/28/23 14:57 Blood Pressure 130/76 07/28/23 14:57 Pulse Oximetry 100 07/28/23 14:57 Oxygen Delivery Method Room Air 07/28/23 14:57 Course <Eugenie Wright PA-C - Last Filed: 07/28/23 20:06> Orders Ordered: Discontinued Medications Hydromorphone HCl (Hydromorphone 0.5 Mg Inj) 0.5 mg IV NOW ONE Stop: 07/28/23 16:24 Last Admin: 07/28/23 16:36 Dose: 0.5 mg Documented By: JIMBO Ondansetron HCl (Ondansetron 4 Mg Odt) 4 mg PO NOW PRN PRN Reason: Nausea And Vomiting Ondansetron HCl (Ondansetron 4 Mg/2 Ml Inj) 4 mg IV NOW PRN PRN Reason: Nausea And Vomiting Ondansetron HCl (Ondansetron 4 Mg/2 Ml Inj) 4 mg IV NOW ONE Stop: 07/28/23 16:08 Last Admin: 07/28/23 16:19 Dose: 4 mg Documented By: JIMBO Vital Signs Vital signs: Vital Signs - 8 hr 07/28/23 14:57 07/28/23 16:04 07/28/23 17:36 Temperature 98.1 F 98.7 F Pulse Rate 95 H 75 72 Respiratory Rate 18 20 18 Blood Pressure 130/76 123/70 112/68 Pulse Oximetry 100 100 100 Oxygen Delivery Method Room Air Room Air Room Air <Susi Edmond DO - Last Filed: 07/29/23 07:22> Orders Ordered: Discontinued Medications Hydromorphone HCl (Hydromorphone 0.5 Mg Inj) 0.5 mg IV NOW ONE Stop: 07/28/23 16:24 Last Admin: 07/28/23 16:36 Dose: 0.5 mg Documented By: RB Ondansetron HCl (Ondansetron 4 Mg Odt) 4 mg PO NOW PRN PRN Reason: Nausea And Vomiting Ondansetron HCl (Ondansetron 4 Mg/2 Ml Inj) 4 mg IV NOW PRN PRN Reason: Nausea And Vomiting Ondansetron HCl (Ondansetron 4 Mg/2 Ml Inj) 4 mg IV NOW ONE Stop: 07/28/23 16:08 Last Admin: 07/28/23 16:19 Dose: 4 mg Documented By: RB Vital Signs Vital signs: Vital Signs - 8 hr 07/28/23 14:57 07/28/23 16:04 07/28/23 17:36 Temperature 98.1 F 98.7 F Pulse Rate 95 H 75 72 Respiratory Rate 18 20 18 Blood Pressure 130/76 123/70 112/68 Pulse Oximetry 100 100 100 Oxygen Delivery Method Room Air Room Air Room Air MDM - Abdominal Pain <Eugenie Wright PA-C - Last Filed: 07/28/23 20:06> Differential Diagnosis Differential diagnosis: Likely abdominal pain, calculus of kidney, pancreatitis and other (Biliary colic, cholecystitis) Medical Records Attestation: I reviewed the patient's medical records. Lab Data Attestation: I reviewed the patient's lab results. 07/28/23 15:15 07/28/23 16:35 Labs: Lab Results 07/28/23 07/28/23 07/28/23 Range/Units 15:05 15:15 16:35 WBC 10.6 (4.5-11.0) X10^3/uL RBC 4.52 (4.0-5.2) X10^6/uL Hgb 13.7 (12.0-16.0) g/dL Hct 40.2 (36-46) % MCV 88.9 (80-100) fL MCH 30.4 (26-34) PG MCHC 34.2 (30-36) % RDW 12.3 (11.6-14.8) % Plt Count 222 (150-400) X10^3/uL Neut % (Auto) 73.8 (50-75) % Lymph % (Auto) 20.8 L (25-40) % [place] % (Auto) 4.4 (3-14) % Eos % (Auto) 0.4 L (2-4) % Baso % (Auto) 0.6 (0-2) % Neut # (Auto) 7800 H (0082-0663) /uL Lymph # (Auto) 2200 (4561-5807) /uL [place] # (Auto) 500 (0-900) /uL Eos # (Auto) 0 (0-450) /uL Baso # (Auto) 100 (0-100) /uL Sodium 137 (137-145) mmol/L Potassium 3.5 (3.4-5.1) mmol/L Chloride 107 (98-107) mmol/L Carbon Dioxide 24 (22-32) mmol/L BUN 7 (7-17) mg/dL Creatinine 1.05 H (0.52-1.04) mg/dL Estimated GFR > 60 (>60) mL/min BUN/Creatinine Ratio 6.7 (6-22) Glucose 105 H (70-100) mg/dL Calcium 8.8 (8.4-10.2) mg/dL Total Bilirubin 0.5 (0.2-1.3) mg/dL AST 17 (14-36) IU/L ALT 14 (<35) IU/L Alkaline Phosphatase 66 (38-126) U/L Total Protein 7.4 (6.3-8.2) g/dL Albumin 4.0 (3.5-5.0) g/dL Globulin 3.4 (1.7-4.1) g/dL Albumin/Globulin Ratio 1.2 (1.0-2.8) Lipase 67 (23-300) U/L Urine Color Yellow Urine Appearance Clear Urine pH 7.5 (4.5-8.0) Ur Specific [place] 1.015 (1.000-1.035) Urine Protein Negative (Negative) Urine Glucose (UA) Negative (Negative) g/dL Urine Ketones Negative (NEGATIVE) Urine Occult Blood Negative (Negative) Urine Nitrate Negative (Negative) Urine Bilirubin Negative (NEGATIVE) Urine Urobilinogen 1.0 (0.2) E.U./dL Ur Leukocyte Esterase Negative (NEGATIVE) Urine RBC None seen (0-5/HPF) Urine WBC 0-1/hpf (0-5/HPF) Ur Squamous Epith Cells 1-5 /hpf (0-5/HPF) Urine Bacteria Occasional (0-1) (None) Ur Culture Indicated? Cult not indicated Urine Test Negative (Negative) Imaging Data US - abdomen: My Impression: Agree with Radiology interpretation Radiologist's Impression: [address] [address] Ultrasound Report Signed Patient: Felicita De León MR#: [id number] : 1995 Acct:[id number] Age/Sex: 28 / F Date of Service: 07/28/23 Loc: ED Accession Number: [id number] Procedure: US abdomen limited Ordering Provider: Susi Edmond D.O. PROCEDURE: US ABDOMEN LIMITED INDICATIONS: ABDOMINAL PAIN; HISTORY OF GALLSTONES TECHNIQUE: Real-time scanning was performed of the abdominal and retroperitoneal organs, with image documentation. COMPARISON: None. FINDINGS: Liver: Liver is normal in size and homogeneous in echotexture. Gallbladder: Multiple mobile stones are present within the gallbladder fundus. The gallbladder wall measures 1.5 mm in diameter. No pericholecystic fluid or sonographic Ordonez sign. Biliary ducts: Intrahepatic bile ducts are non-dilated. Extrahepatic bile duct caliber measures 5.9 mm. Normal is 6-7 mm or less in diameter, or 10 mm or less post-cholecystectomy. Pancreas: Visualized portions of the pancreas are sonographically normal. The tail is not visualized. IMPRESSION: Cholelithiasis. No findings to suggest choledocholithiasis or acute cholecystitis. Dictated by: Mirna Lay M.D. on 07/28/2023 at 16:07 Approved by: Mirna Lay M.D. on 07/28/2023 at 16:08 Treatment and Disposition Shared decision making:: Shared decision-making was used to determine the patient's evaluation and plan for outpatient follow up. MDM Narrative Medical decision making narrative: This is a 28-year-old obese woman with a history of gallstones previously slated for gallbladder surgery 6 years prior and chronic gallbladder pains who presents today with concern for gallbladder pain. Patient advises her pain today is worse than it has been in the past but she has been afebrile and did have 4 episodes of vomiting. Her exam today was concerning for right upper quadrant tenderness, right upper quadrant ultrasound ordered and labs obtained, her labs are unremarkable with no elevation of liver enzymes and lipase is also unremarkable. She does have goal stones present in her gallbladder which are mobile and there is no evidence of cholecystitis on ultrasound. Counseled the patient to monitor carefully for new or persistent symptoms, advised her to follow up closely with her primary care provider, reduce fat containing foods, discussed with her PCP seeing a general surgeon for re-evaluation and consideration of possible cholecystectomy. Notably patient states this had been planned 6 years prior but she moved out of the state she was living in and has not followed up since. She also does state that she lives in a home with 6 other people and her meals are prepared for her so she has difficulty controlling the content of them and making sure she has having a low-fat diet. Patient denied chest pain shortness of breath or other symptoms and abdominal exam and history are consistent with gallbladder etiology. Urine does not suggest a UTI and her symptoms are not consistent with this or ureterolithiasis. Suspect biliary colic. Return precautions provided, follow-up plan discussed, all questions answered. <Susi Edmond, - Last Filed: 07/29/23 07:22> Lab Data Labs: Lab Results 07/28/23 07/28/23 07/28/23 Range/Units 15:05 15:15 16:35 WBC 10.6 (4.5-11.0) X10^3/uL RBC 4.52 (4.0-5.2) X10^6/uL Hgb 13.7 (12.0-16.0) g/dL Hct 40.2 (36-46) % MCV 88.9 (80-100) fL MCH 30.4 (26-34) PG MCHC 34.2 (30-36) % RDW 12.3 (11.6-14.8) % Plt Count 222 (150-400) X10^3/uL Neut % (Auto) 73.8 (50-75) % Lymph % (Auto) 20.8 L (25-40) % [place] % (Auto) 4.4 (3-14) % Eos % (Auto) 0.4 L (2-4) % Baso % (Auto) 0.6 (0-2) % Neut # (Auto) 7800 H (2125-3130) /uL Lymph # (Auto) 2200 (8869-6769) /uL [place] # (Auto) 500 (0-900) /uL Eos # (Auto) 0 (0-450) /uL Baso # (Auto) 100 (0-100) /uL Sodium 137 (137-145) mmol/L Potassium 3.5 (3.4-5.1) mmol/L Chloride 107 (98-107) mmol/L Carbon Dioxide 24 (22-32) mmol/L BUN 7 (7-17) mg/dL Creatinine 1.05 H (0.52-1.04) mg/dL Estimated GFR > 60 (>60) mL/min BUN/Creatinine Ratio 6.7 (6-22) Glucose 105 H (70-100) mg/dL Calcium 8.8 (8.4-10.2) mg/dL Total Bilirubin 0.5 (0.2-1.3) mg/dL AST 17 (14-36) IU/L ALT 14 (<35) IU/L Alkaline Phosphatase 66 (38-126) U/L Total Protein 7.4 (6.3-8.2) g/dL Albumin 4.0 (3.5-5.0) g/dL Globulin 3.4 (1.7-4.1) g/dL Albumin/Globulin Ratio 1.2 (1.0-2.8) Lipase 67 (23-300) U/L Urine Color Yellow Urine Appearance Clear Urine pH 7.5 (4.5-8.0) Ur Specific [place] 1.015 (1.000-1.035) Urine Protein Negative (Negative) Urine Glucose (UA) Negative (Negative) g/dL Urine Ketones Negative (NEGATIVE) Urine Occult Blood Negative (Negative) Urine Nitrate Negative (Negative) Urine Bilirubin Negative (NEGATIVE) Urine Urobilinogen 1.0 (0.2) E.U./dL Ur Leukocyte Esterase Negative (NEGATIVE) Urine RBC None seen (0-5/HPF) Urine WBC 0-1/hpf (0-5/HPF) Ur Squamous Epith Cells 1-5 /hpf (0-5/HPF) Urine Bacteria Occasional (0-1) (None) Ur Culture Indicated? Cult not indicated Urine Test Negative (Negative) Discharge Plan Departure Patient Disposition: Home Clinical Impression: Right upper quadrant abdominal pain, Biliary colic Activity Restrictions/Additional Instructions: *You have been diagnosed with [biliary colic, right upper quadrant pain] *What to do: *Please continue to take your regular medications as directed. [1 ] New medication prescriptions sent to your pharmacy: [[facility]] [ ] New medication written as a paper prescription [ ] No new medications given *Please follow up with your primary care provider in 2-3 days, call for an appointment. Let them know you were seen in the Emergency Department and that we ask that you be seen in follow up. We will electronically transmit a record of today's note if your PCP is in our system. You came into the ER with significant upper abdominal pain since early this morning, we did an ultrasound and labs to further evaluate given your history of gallstones, you do still have gallstones present, however there is no evidence of inflammation or infection of the gallbladder and your labs were looking okay today. I suspect that you have been experiencing biliary colic or intermittent pain related to your gallbladder and gallstones being present, you did note that you were scheduled to have your gallbladder removed 6 years ago but did not have this done as he moved out of state. I would strongly encourage you to see your primary care provider and talked to them about seeing General surgery as an outpatient and you can discuss with them whether or not they recommend having her gallbladder removed. It is possible that you may continue to have problems with your gallbladder acting up and sometimes removal can be helpful. I did prescribe some antinausea medicine for you. If you develop fevers or ear pain worsens again or becomes severe or if you have other symptoms of concern please do not hesitate to get re- evaluated. Based on your labs and ultrasound and exam today there is no indication for admission or immediate surgery, but this can change and it is important to keep a close eye on your symptoms. As we discussed if you can please do your best to try to minimize consumption of fatty foods it sounds like this is difficult as you do not prepare her own meals in the home where you live but do your best to eat healthy and lower fat foods and this may help with your gallbladder symptoms. *If you do not have a primary care provider please contact the [facility] Resource line at [phone]. They will ask some questions about your medical history and help get you set up with a doctor in the community. *Return to Emergency Department if you should have any new, worsening or concerning symptoms, such as [fever greater than 101 F, shaking chills, worsening pain, persistent vomiting or other bothersome symptoms] Prescriptions: New ondansetron 4 mg tablet,disintegrating 4 mg PO Q8H 4 Days Qty: 12 0RF No Action buspirone 5 mg Tablet PO BID Rx Instructions: doesn't know her dose trihexyphenidyl 2 mg Tablet PO BID Patient Comments: doesn't know her dose Vraylar 4.5 mg Capsule 4.5 mg PO DAILY prazosin 1 mg Capsule PO BEDTIME Rx Instructions: doesn't know her dose atomoxetine [Strattera] 10 mg Capsule PO DAILY Rx Instructions: doesn't know her dose ziprasidone HCl 40 mg capsule 40 mg PO BID Qty: 60 0RF Rx Instructions: give with food (meal/snack) lithium carbonate 450 mg tablet extended release 450 mg PO BID Qty: 60 0RF amoxicillin-pot clavulanate 875-125 mg tablet 1 tab PO BID Qty: 14 0RF fluticasone propionate [Flonase Allergy Relief] 50 mcg/actuation spray,suspension 1 spray intranasal Q12H Qty: 16 0RF Rx Instructions: administer into each nostril metoclopramide HCl [Reglan] 5 mg tablet 5 mg PO QAC Qty: 20 0RF Rx Instructions: administer 30 minutes before meals Referrals: Filomena Haq MD [Primary Care Provider] - Stand Alone Forms: Patient Portal/API ED Sign-out <Susi Edmond DO - Last Filed: 07/29/23 07:22> Cosign ED Attending Cecilia Attestation: I was immediately available in the department for consultation.
[2023-07-28 16:04] VITALS: BP 123/70; PULSE 75; RESP 20; TEMP 37.1; O2SAT 100
[2023-07-28 16:05] LABS: Bacteria Urine Occasional (0-1); Culture Indicated Urine Cult Not Indicated; RBC Urine None Seen (0-5/HPF); Squamous Epithelial Cell Urine 1-5 /HPF (0-5/HPF); WBC Urine 0-1/HPF (0-5/HPF)
[2023-07-28 16:18] LABS: Pregnancy Test Urine Negative (Negative)
[2023-07-28] MEDS: ONDANSETRON 4 MG/2 ML INJ IV (16:19)
[2023-07-28] MEDS: HYDROMORPHONE 0.5 MG INJ IV (16:36)
[2023-07-28 17:02] LABS: Alanine Aminotransferase 14 IU/L (<35); Albumin Globulin Ratio 1.2 (1.0-2.8); Alkaline Phosphatase 66 U/L (38-126); Aspartate Aminotransferase 17 IU/L (14-36); BUN Creatinine Ratio 6.7 (6-22); Bilirubin Total 0.5 mg/dL (0.2-1.3); Blood Urea Nitrogen 7 mg/dL (7-17); Calcium 8.8 mg/dL (8.4-10.2); Carbon Dioxide 24 mmol/L (22-32); Chloride 107 mmol/L (98-107); Estimated Glomerular Filt Rate > 60 mL/min (>60); Globulin 3.4 g/dL (1.7-4.1); Glucose 105 mg/dL (70-100); HEMOLYSIS < 15 (0-50); Lipase 67 U/L (23-300); Potassium 3.5 mmol/L (3.4-5.1); Sodium 137 mmol/L (137-145); Total Protein 7.4 g/dL (6.3-8.2)
[2023-07-28 17:36] VITALS: BP 112/68; PULSE 72; RESP 18; O2SAT 100
== END 2023-07-28 17:59 | disposition home or self-care (01) ==
PROVIDERS: Emergency Medicine; Emergency Provider Student in an Organized Health Care Education/Training Program; PCP Family Medicine
DX: K80.50 Calculus of bile duct without cholangitis or cholecystitis without obstruction (principal); R10.11 Right upper quadrant pain; R11.2 Nausea with vomiting, unspecified
CPT/HCPCS: 36415; 76705; 80053; 81001; 81025; 83690; 85025; 96374; 96375; 99284; J1170; J2405

== ENCOUNTER 2023-08-01 17:12 | Emergency (ER) | payer OTHER, MEDICAID, SELFPAY ==
[2023-08-01 17:28] VITALS: BP 146/105; PULSE 78; RESP 18; TEMP 36.8; O2SAT 100; BMI 35.2
[2023-08-01 17:58] LABS: Pregnancy Test Urine Negative (Negative)
[2023-08-01 18:19] LABS: Add Manual Diff / Slide Review NO; Basophils Absolute Auto 0 /uL (0-100); Basophils Percent Auto 0.4 % (0-2); Eosinophils Absolute Auto 100 /uL (0-450); Eosinophils Percent Auto 0.7 % (2-4); Hematocrit 39.4 % (36-46); Hemoglobin 13.3 g/dL (12.0-16.0); Lymphocytes Absolute Auto 2300 /uL (1100-4500); Mean Corpuscular HGB Conc 33.8 % (30-36); Mean Corpuscular Hemoglobin 29.6 PG (26-34); Mean Corpuscular Volume 87.4 fL (80-100); Monocytes Absolute Auto 400 /uL (0-900); Monocytes Percent Auto 3.8 % (3-14); Neutrophils Absolute Auto 6900 /uL (1500-7000); Neutrophils Percent Auto 71.1 % (50-75); Platelet Count 236 X10^3/uL (150-400); Red Blood Cell Count 4.51 X10^6/uL (4.0-5.2); Red Cell Distribution Width 12.4 % (11.6-14.8); White Blood Cell Count 9.7 X10^3/uL (4.5-11.0)
[2023-08-01 18:26] LABS: Alanine Aminotransferase 13 IU/L (<35); Albumin 4.3 g/dL (3.5-5.0); Albumin Globulin Ratio 1.2 (1.0-2.8); Alkaline Phosphatase 62 U/L (38-126); Aspartate Aminotransferase 17 IU/L (14-36); BUN Creatinine Ratio 8.4 (6-22); Bilirubin Total 0.4 mg/dL (0.2-1.3); Blood Urea Nitrogen 8 mg/dL (7-17); Calcium 9.5 mg/dL (8.4-10.2); Carbon Dioxide 22 mmol/L (22-32); Chloride 107 mmol/L (98-107); Estimated Glomerular Filt Rate > 60 mL/min (>60); Ethanol (ETOH) < 10 mg/dL; Globulin 3.5 g/dL (1.7-4.1); Glucose 100 mg/dL (70-100); HEMOLYSIS < 15 (0-50); Potassium 3.4 mmol/L (3.4-5.1); Sodium 137 mmol/L (137-145); Total Protein 7.8 g/dL (6.3-8.2)
--- NOTE | 2023-08-01 18:28 | ED.PSYCH ---
HPI - Psych General Chief Complaint: Psychiatric Symptoms Stated Complaint: PHSYCHIATRIC SYPTOMS Time Seen by Provider: 08/01/23 17:47 Source: patient Mode of arrival: Ambulatory History of Present Illness HPI Narrative: Patient is a 28-year-old female history of bipolar depression with the presenting today with suicidal ideations. She reports that she feels like she has bugs all over her she can see them as clear as day. She says that she gets better and then she gets worsened she is just tired of it and frustrated. She wants to drink punched alcohol and take lithium. She was hospitalized in March in [place]. She is requesting inpatient treatment again. She denies taking any extra medication she denies hurting herself today but as definite plan. Related Data Home Medications Medication Instructions Recorded Confirmed atomoxetine 10 mg capsule mg PO DAILY 04/03/23 (Strattera) buspirone 5 mg tablet mg PO BID 04/03/23 cariprazine 4.5 mg capsule 4.5 mg PO DAILY 04/03/23 04/03/23 (Vraylar) prazosin 1 mg capsule mg PO BEDTIME 04/03/23 trihexyphenidyl 2 mg tablet mg PO BID 04/03/23 Previous Rx's Medication Instructions Recorded lithium carbonate 450 mg 450 mg PO BID #60 tabs 04/17/23 tablet,extended release ziprasidone HCl 40 mg capsule 40 mg PO BID #60 caps 04/17/23 amoxicillin 875 mg-potassium 1 tab PO BID #14 tabs 07/17/23 clavulanate 125 mg tablet fluticasone propionate 50 1 spray intranasal Q12H #16 grams 07/17/23 mcg/actuation nasal spray,suspension (Flonase Allergy Relief) metoclopramide HCl 5 mg tablet 5 mg PO QAC #20 tabs 07/17/23 (Reglan) Allergies Allergy/AdvReac Type Severity Reaction Status Date / Time ibuprofen AdvReac Verified 08/01/23 17:28 Patient History Medical History Bipolar disorder Social History Smoking Status: Current every day smoker Smoking Status: Current every day smoker tobacco type: vaping alcohol intake frequency: holidays/special occasions only Substance Use Type: marijuana Exam Initial Vital Signs Initial Vital Signs: Vital Signs Temperature 98.2 F 08/01/23 17:28 Pulse Rate 78 08/01/23 17:28 Respiratory Rate 18 08/01/23 17:28 Blood Pressure 146/105 H 08/01/23 17:28 Pulse Oximetry 100 08/01/23 17:28 Oxygen Delivery Method Room Air 08/01/23 17:28 GENERAL: Alert pleasant 28-year-old female and in no acute distress. HEENT: Head atraumatic,EOMI, pupils reactive, face symmetric, moist mucous membranes CARDIOVASCULAR: Regular rate and rhythm without murmurs, rubs or gallops. RESPIRATORY: Breath sounds equal bilaterally, no wheezes rales or rhonchi. EXTREMITIES: Normal range of motion, no clubbing or edema. Neurovascularly intact NEUROLOGICAL: Alert and oriented x4. SKIN: Warm, dry, no laceration, no petechiae, no rashes or lesions. Psych Appearance: grossly normal Speech and Movement: speech and movement normal and speech clear Mood: paranoid Affect: sad Attitude: cooperative Thought Content: hallucinations and suicidality Judgment: fair Course Orders Ordered: ED Orders 08/01/23 17:33 Consult to [employer] - Assistant Manager Stat 08/01/23 17:49 Test Urine Stat Urinalysis and Microscopic Stat Urine Culture Stat Urine Drug Screen, Rapid Stat 08/01/23 18:00 Complete Blood Count AUTO DIFF Stat Comprehensive Metabolic Panel Stat Ethanol (ETOH) Stat [place] Stat TSH w/ Reflex to FT4 Stat 08/01/23 18:06 COVID19 -Nasal RAPID Stat Vital Signs Vital signs: Vital Signs - 8 hr 08/01/23 17:28 08/01/23 21:24 Temperature 98.2 F 98.1 F Pulse Rate 78 62 Respiratory Rate 18 16 Blood Pressure 146/105 H 124/64 Pulse Oximetry 100 100 Oxygen Delivery Method Room Air Room Air MDM - Psych Lab Data 08/01/23 18:00 08/01/23 18:00 Labs: Lab Results 08/01/23 08/01/23 08/01/23 Range/Units 17:49 17:49 18:00 WBC 9.7 (4.5-11.0) X10^3/uL RBC 4.51 (4.0-5.2) X10^6/uL Hgb 13.3 (12.0-16.0) g/dL Hct 39.4 (36-46) % MCV 87.4 (80-100) fL MCH 29.6 (26-34) PG MCHC 33.8 (30-36) % RDW 12.4 (11.6-14.8) % Plt Count 236 (150-400) X10^3/uL Neut % (Auto) 71.1 (50-75) % Lymph % (Auto) 24.0 L (25-40) % [place] % (Auto) 3.8 (3-14) % Eos % (Auto) 0.7 L (2-4) % Baso % (Auto) 0.4 (0-2) % Neut # (Auto) 6900 (1132-5511) /uL Lymph # (Auto) 2300 (9024-5598) /uL [place] # (Auto) 400 (0-900) /uL Eos # (Auto) 100 (0-450) /uL Baso # (Auto) 0 (0-100) /uL Sodium 137 (137-145) mmol/L Potassium 3.4 (3.4-5.1) mmol/L Chloride 107 (98-107) mmol/L Carbon Dioxide 22 (22-32) mmol/L BUN 8 (7-17) mg/dL Creatinine 0.95 (0.52-1.04) mg/dL Estimated GFR > 60 (>60) mL/min BUN/Creatinine Ratio 8.4 (6-22) Glucose 100 (70-100) mg/dL Calcium 9.5 (8.4-10.2) mg/dL Total Bilirubin 0.4 (0.2-1.3) mg/dL AST 17 (14-36) IU/L ALT 13 (<35) IU/L Alkaline Phosphatase 62 (38-126) U/L Total Protein 7.8 (6.3-8.2) g/dL Albumin 4.3 (3.5-5.0) g/dL Globulin 3.5 (1.7-4.1) g/dL Albumin/Globulin Ratio 1.2 (1.0-2.8) TSH 3.88 (0.47-4.68) uIU/mL Urine Color Yellow Urine Appearance Clear Urine pH 6.5 Normal (4.5-8.0) Ur Specific [place] 1.010 (1.000-1.035) Urine Protein Negative (Negative) Urine Glucose (UA) Negative (Negative) g/dL Urine Ketones Negative (NEGATIVE) Urine Occult Blood 1+ H (Negative) Urine Nitrate Negative (Negative) Urine Bilirubin Negative (NEGATIVE) Urine Urobilinogen 0.2 (0.2) E.U./dL Ur Leukocyte Esterase 1+ H (NEGATIVE) Urine RBC None seen (0-5/HPF) Urine WBC 1-5/hpf (0-5/HPF) Ur Squamous Epith Cells 1-5 /hpf (0-5/HPF) Urine Bacteria Few (2-10) H (None) Ur Culture Indicated? Specimen cultured Urine Test Negative (Negative) U Opiates 300ng/mL cut Negative (Negative) Ur Oxycodone Screen Negative (Negative) Urine Methadone Screen Negative (Negative) Ur Barbiturates Screen Negative (Negative) U Tricyclic Antidepress Negative (Negative) Ur Phencyclidine Scrn Negative (Negative) Ur Amphetamines Screen Negative (Negative) U Methamphetamines Scrn Negative (Negative) Ur MDMA Scrn (Ecstasy) Negative (Negative) U Benzodiazepines Scrn Negative (Negative) [place] 0.7 (0.6-1.2) mmol/L Urine Cocaine Screen Negative (Negative) U Marijuana (THC) Screen Positive H (Negative) Urine Specific [place] Normal (Normal) Ethyl Alcohol < 10 ( - 10) mg/dL Ur Creatinine Normal (Normal) SARS-CoV-2 (PCR) (Negative) 08/01/23 Range/Units 18:06 WBC (4.5-11.0) X10^3/uL RBC (4.0-5.2) X10^6/uL Hgb (12.0-16.0) g/dL Hct (36-46) % MCV (80-100) fL MCH (26-34) PG MCHC (30-36) % RDW (11.6-14.8) % Plt Count (150-400) X10^3/uL Neut % (Auto) (50-75) % Lymph % (Auto) (25-40) % [place] % (Auto) (3-14) % Eos % (Auto) (2-4) % Baso % (Auto) (0-2) % Neut # (Auto) (8920-5600) /uL Lymph # (Auto) (3573-3720) /uL [place] # (Auto) (0-900) /uL Eos # (Auto) (0-450) /uL Baso # (Auto) (0-100) /uL Sodium (137-145) mmol/L Potassium (3.4-5.1) mmol/L Chloride (98-107) mmol/L Carbon Dioxide (22-32) mmol/L BUN (7-17) mg/dL Creatinine (0.52-1.04) mg/dL Estimated GFR (>60) mL/min BUN/Creatinine Ratio (6-22) Glucose (70-100) mg/dL Calcium (8.4-10.2) mg/dL Total Bilirubin (0.2-1.3) mg/dL AST (14-36) IU/L ALT (<35) IU/L Alkaline Phosphatase (38-126) U/L Total Protein (6.3-8.2) g/dL Albumin (3.5-5.0) g/dL Globulin (1.7-4.1) g/dL Albumin/Globulin Ratio (1.0-2.8) TSH (0.47-4.68) uIU/mL Urine Color Urine Appearance Urine pH (4.5-8.0) Ur Specific [place] (1.000-1.035) Urine Protein (Negative) Urine Glucose (UA) (Negative) g/dL Urine Ketones (NEGATIVE) Urine Occult Blood (Negative) Urine Nitrate (Negative) Urine Bilirubin (NEGATIVE) Urine Urobilinogen (0.2) E.U./dL Ur Leukocyte Esterase (NEGATIVE) Urine RBC (0-5/HPF) Urine WBC (0-5/HPF) Ur Squamous Epith Cells (0-5/HPF) Urine Bacteria (None) Ur Culture Indicated? Urine Test (Negative) U Opiates 300ng/mL cut (Negative) Ur Oxycodone Screen (Negative) Urine Methadone Screen (Negative) Ur Barbiturates Screen (Negative) U Tricyclic Antidepress (Negative) Ur Phencyclidine Scrn (Negative) Ur Amphetamines Screen (Negative) U Methamphetamines Scrn (Negative) Ur MDMA Scrn (Ecstasy) (Negative) U Benzodiazepines Scrn (Negative) [place] (0.6-1.2) mmol/L Urine Cocaine Screen (Negative) U Marijuana (THC) Screen (Negative) Urine Specific [place] (Normal) Ethyl Alcohol ( - 10) mg/dL Ur Creatinine (Normal) SARS-CoV-2 (PCR) Negative (Negative) MDM Narrative Medical decision making narrative: Patient 28-year-old female history of bipolar depression suicidal ideations presenting today it voluntarily. She was requesting inpatient treatment for suicidal ideations. She has plan to harm herself but has not. She does not trust herself home. Blood work has been reviewed. No evidence of lithium toxicity Patient is accepted at [facility] Discharge Plan Departure Patient Disposition: [facility] Clinical Impression: Suicidal ideation, Paranoia Prescriptions: No Action buspirone 5 mg Tablet PO BID Rx Instructions: doesn't know her dose trihexyphenidyl 2 mg Tablet PO BID Patient Comments: doesn't know her dose Vraylar 4.5 mg Capsule 4.5 mg PO DAILY prazosin 1 mg Capsule PO BEDTIME Rx Instructions: doesn't know her dose atomoxetine [Strattera] 10 mg Capsule PO DAILY Rx Instructions: doesn't know her dose ziprasidone HCl 40 mg capsule 40 mg PO BID Qty: 60 0RF Rx Instructions: give with food (meal/snack) lithium carbonate 450 mg tablet extended release 450 mg PO BID Qty: 60 0RF amoxicillin-pot clavulanate 875-125 mg tablet 1 tab PO BID Qty: 14 0RF fluticasone propionate [Flonase Allergy Relief] 50 mcg/actuation spray,suspension 1 spray intranasal Q12H Qty: 16 0RF Rx Instructions: administer into each nostril metoclopramide HCl [Reglan] 5 mg tablet 5 mg PO QAC Qty: 20 0RF Rx Instructions: administer 30 minutes before meals Referrals: Filomena Haq MD [Primary Care Provider] -
[2023-08-01 18:30] LABS: Appearance Urine UA CLEAR; Bilirubin Urine UA NEGATIVE (NEGATIVE); Color Urine UA YELLOW; Glucose Urine UA NEGATIVE (Negative); Ketones Urine UA NEGATIVE (NEGATIVE); Leukocyte Esterase Urine UA 1+ (NEGATIVE); Nitrite Urine UA NEGATIVE (Negative); Occult Blood Urine UA 1+ (Negative); Protein Urine UA NEGATIVE (Negative); Urobilinogen Urine UA 0.2 E.U./dL (0.2)
[2023-08-01 18:30] LABS: COVID19 -Nasal RAPID Negative (Negative)
[2023-08-01 18:34] LABS: pH Urine UA 6.5 (4.5-8.0)
[2023-08-01 18:35] LABS: Ur Creatinine Normal (Normal); Ur Specific Gravity Normal (Normal); Urine pH Normal (Normal)
[2023-08-01 18:36] LABS: UR Morphine/Opiate cutoff 300 Negative (Negative); Urine Amphetamines Negative (Negative); Urine Barbiturates Negative (Negative); Urine Benzodiazepines Negative (Negative); Urine Cocaine Negative (Negative); Urine MDMA Negative (Negative); Urine Methadone Negative (Negative); Urine Methamphetamines Negative (Negative); Urine Oxycodone Negative (Negative); Urine Phencyclidine Negative (Negative); Urine Tetrahydrocannabinol Positive (Negative); Urine Tricyclic Antidepressant Negative (Negative)
[2023-08-01 18:43] LABS: Bacteria Urine Few (2-10); Culture Indicated Urine Specimen Cultured; RBC Urine None Seen (0-5/HPF); Squamous Epithelial Cell Urine 1-5 /HPF (0-5/HPF); WBC Urine 1-5/HPF (0-5/HPF)
--- NOTE | 2023-08-01 18:46 | PC.NURSE ---
Pt is voluntary for inpt psych. [facility] - packet sent to [phone] at [address] [facility]- No answer [facility] - packet sent to [phone] [facility] -packet sent to [phone]
[2023-08-01 18:50] LABS: Lithium 0.7 mmol/L (0.6-1.2)
[2023-08-01 19:02] LABS: TSH w/ Reflex to FT4 3.88 uIU/mL (0.47-4.68)
--- NOTE | 2023-08-01 20:00 | PC.NURSE ---
[facility] ( [facility]) accepts patient. Accepted by Norberto CAPUTO. Spoke with Luis, who informed us of this information, he also is requesting COVID results to be faxed over. He states patient can arrive anytime, so soon as BLS transport can be arranged she can begin transfer to [facility]. Call [id number] report to #[phone]. Luis would like to be called back and given ETA of BLS transport once it is confirmed. Call back at #[phone].
[2023-08-01 21:24] VITALS: BP 124/64; PULSE 62; RESP 16; TEMP 36.7; O2SAT 100
--- NOTE | 2023-08-01 21:25 | PC.NURSE ---
[facility] transport arrived, report given to DELISA Fenton. Yasmine Fax Felix contacted ([phone]), spoke to SANGEETHA Chavarria and gave [id number] report. Patient is calm, cooperative, last set of vital signs WNL. Patient left ED via S ambulance at approximately 2135. Felix Underwood Fax given arrival ETA of [address]
== END 2023-08-01 21:35 ==
PROVIDERS: Emergency Provider Emergency Medicine; PCP Family Medicine
DX: R45.851 Suicidal ideations (principal); F22 Delusional disorders; Z20.822 Contact with and (suspected) exposure to COVID-19
CPT/HCPCS: 36415; 80053; 80178; 80305; 80320; 81001; 81025; 84443; 85025; 87077; 87086; 87186; 87635; 99284